=== PATIENT | male | born 1965 | race Caucasian/White ===

== ENCOUNTER → 2017-01-27 | Outpatient (CLI) | payer OTHER ==
[~2017-01-27] MED LIST: "\\\"BP PILL\\\""; ASPIRIN ADULT L81 M1 PO; EFFEXOR-XR75 MG PO; HYDR25T PO; LISINOPRIL10 M1 PO; MEDROL DOSEPAK4 MG PO; METOPROLOL TART50 M1 PO; SIMVASTATIN20 MG PO
[2017-01-27 11:46] LABS: BASO # 0.1 10*3/uL (0.0-0.1); BASO % 0.5 % (0.0-1.0); EOS # 0.1 10*3/uL (0.0-0.4); EOS % 0.9 % (1.0-4.0); HEMATOCRIT 42.4 % (42.0-52.0); HEMOGLOBIN 14.5 g/dl (14.0-18.0); LYMPH # 2.3 10*3/uL (1.3-4.4); LYMPH % 22.6 % (27.0-41.0); MEAN CELL VOLUME 99.8 fl (80.0-94.0); MEAN CORPUSCULAR HGB 34.1 pg (27.0-31.0); MEAN CORPUSCULAR HGB CONC 34.2 g/dl (33.0-37.0); MEAN PLATELET VOLUME 9.9 fl (9.6-12.3); MONO # 0.6 10*3/uL (0.1-1.0); NEUT % 68.6 % (47.0-73.0); PLATELET COUNT AUTOMATED 232 10*3/uL (130-400); RED BLOOD COUNT 4.25 10*6/uL (4.50-5.90); WHITE BLOOD COUNT 10.2 10*3/uL (4.8-10.8)
[2017-01-27 12:10] LABS: INTERNATIONAL NORM RATIO 0.9 (2.0-3.5)
[2017-01-27 12:11] LABS: ALKALINE PHOSPHATASE 79 U/L (45-117); BILIRUBIN, DIRECT 0.2 mg/dL (0.0-0.2); BUN 20 mg/dl (7-24); CHLORIDE 105 mmol/L (98-107); CREATININE 1.09 mg/dL (0.70-1.30); POTASSIUM 4.7 mmol/L (3.5-5.1); SGOT/AST 27 IU/L (3-35); SGPT/ALT 39 U/L (12-78); SODIUM 138 mmol/L (136-145); TOTAL PROTEIN 7.7 gm/dL (6.4-8.2)
[2017-01-27 12:58] LABS: BILIRUBIN NEGATIVE (NEGATIVE); BLOOD NEGATIVE (NEGATIVE); CLARITY CLEAR (CLEAR); COLOR YELLOW (YELLOW); GLUCOSE NEGATIVE (NEGATIVE); KETONE NEGATIVE (NEGATIVE); LEUKO ESTERASE NEGATIVE (NEGATIVE); NITRITE NEGATIVE (NEGATIVE); PH 5.5 (5.0-9.0); SPECIFIC GRAVITY <= 1.005 (1.005-1.030); UROBILINOGEN 0.2 E.U./dl (0.2-1.0)
[2017-01-27 13:37] LABS: RBC 0-2 rbc/hpf (0-2)
== END | disposition home or self-care (01) ==
LOC: LAB 10:09
PROVIDERS: Surgery
DX: Z01.818 Encounter for other preprocedural examination (principal); K40.20 Bilateral inguinal hernia, without obstruction or gangrene, not specified as recurrent; R06.02 Shortness of breath; R05 Cough

== ENCOUNTER → 2017-02-02 | Day surgery (SDC) | payer OTHER ==
[2017-01-27 10:41] VITALS: BP 120/78
[2017-02-02] VITALS (8 sets, daily range): BP systolic 117–152; BP diastolic 50–72
[~2017-02-02] VITALS: Ht 175.2 cm; Wt 74.8 kg
[~2017-02-02] MED LIST changes: +NORCO 5-325 TA1 EACH PO
--- NOTE | ~2017-02-02 | O ---
[place], [place] OPERATIVE NOTE NAME: MARIJA PUENTE III [facility] #: [id number] UNIT #: [id number] ROOM: DOCTOR: JIMMY POWELL MD BIRTHDATE: [birth year] DOS: 02/02/2017 PREOPERATIVE DIAGNOSIS: Bilateral inguinal hernia. POSTOPERATIVE DIAGNOSIS: Bilateral inguinal hernia. PROCEDURE: Repair of bilateral inguinal hernia with mesh. SURGEON: Jimmy Powell MD BROOM MACHINE OPERATOR: CAS. ANESTHESIA: General. INDICATIONS: This is a 51-year-old gentleman with a history of bilateral inguinal hernia, who is here for the above-mentioned procedure. The procedure and its complications explained to the patient in detail preoperatively. Complications that were discussed included, but were not limited to bleeding, infection, hematoma/seroma/abscess formation, formation and recurrence, prolonged postoperative pain and damage to underlying vital structures, agreed to proceed. DESCRIPTION OF PROCEDURE: After identifying patient, patient was brought to the operating suite and laid in the supine position. After induction of general anesthesia, the parts were painted and draped in the usual sterile fashion and a time-out procedure was called. It was decided to proceed with the left inguinal hernia repair first. Incision was marked and an incision was made over the marked site. The skin and the subcutaneous tissue were incised in the line of the incision. The external oblique aponeurosis was incised in the line of its fibers. The cord structures were encircled with the help of a Celi drain and retracted away. There was found to be a direct inguinal hernia. There was no indirect sac that could be identified. In order to better repair of this defect, the upturned part of the inguinal ligament and the conjoined tendon approximated with the help of #1 Prolene in an interrupted fashion. Thereafter, light Prolene mesh was brought and sutured to the upturned part of the inguinal ligament and the conjoined tendon with the help of 3-0 Prolene in an interrupted fashion. Thereafter, the external oblique aponeurosis was approximated with the help of 0 Vicryl in a running fashion. The skin edges were approximated after the subcutaneous tissue was irrigated and approximated with the help of 3-0 Vicryl in a running fashion. Skin edges were approximated with the help of 4-0 Vicryl in a subcuticular running fashion after edges were infiltrated with 1% plain lidocaine. A dressing was placed. The attention was then turned towards the right side. Exactly, the same procedure was performed on the right side. There was no indirect hernia that could be visualized. The hernial defect was a direct hernia. After that was completed, the patient was extubated and brought back to the recovery room in stable fashion. There were no complications. [place], [place] OPERATIVE NOTE NAME: MARIJA PUENTE III UNIT #: [id number] ROOM: DOCTOR: JIMMY POWELL MD BIRTHDATE: [birth year] Jimmy Powell MD CM:OPRECORD:OPERATIVE NOTE [id number] 1405 JIMMY POWELL MD 02/02/17 1404 interface
== END | disposition home or self-care (01) ==
LOC: SDC 01-27 10:15
DX: K40.20 Bilateral inguinal hernia, without obstruction or gangrene, not specified as recurrent (principal); I10 Essential (primary) hypertension; F17.210 Nicotine dependence, cigarettes, uncomplicated; Z98.890 Other specified postprocedural states; Z79.899 Other long term (current) drug therapy

== ENCOUNTER 2018-11-20 13:07 | Inpatient (IN) | payer BC ==
[~2018-11-20] VITALS: Ht 175.3 cm; Wt 79.4 kg
--- NOTE | ~2018-11-20 | EKG ---
[place], [place] ELECTROCARDIOGRAM REPORT NAME: MARIJA PUENTE III UNIT #: [id number] ROOM: [facility] DOCTOR: ELÍAS DRAFT REPORT BIRTHDATE: [birth year] [facility] Test Date: 2018-11-20 Test Time: 13:58:12 Pat Name: MARIJA PUENTE Department: Room: [place] [address] Gender: M Scrum Project Manager: Fabby Oliva : 1965 Requested By: ROSALBA ANDRADE Order Number: [id number] Reading MD: Jim Logan MD Measurements Intervals [place] Rate: 112 P: -54 AK: 133 QRS: 46 QRSD: 99 T: 118 QT: 355 QTc: 485 Interpretive Statements Sinus or ectopic atrial tachycardia LVH with secondary repolarization abnormality Anteroseptal infarct, possibly acute Electronically Signed On 11-22-2018 12:27:07 PDT by Jim Logan MD CM:EKGRPT:ELECTROCARDIOGRAM REPORT [id number] 1227 ROSALBA ANDRADE MD EPIPHANY DRAFT REPORT ROSALBA ANDRADE MD
--- NOTE | ~2018-11-20 | EKG ---
[place], [place] ELECTROCARDIOGRAM REPORT NAME: MARIJA PUENTE III UNIT #: [id number] ROOM: [facility] DOCTOR: ELÍAS DRAFT REPORT BIRTHDATE: [birth year] [facility] Test Date: 2018-11-20 Test Time: 18:00:37 Pat Name: MARIJA PUENTE Department: Room: [place] [address] Gender: M Sampling Theory Teacher: : 1965 Requested By: ROSALBA ANDRADE Order Number: [id number] Reading MD: Jim Logan MD Measurements Intervals [place] Rate: 97 P: 80 OK: 132 QRS: 55 QRSD: 104 T: 136 QT: 376 QTc: 478 Interpretive Statements Sinus rhythm LAE, consider biatrial enlargement LVH with secondary repolarization abnormality Anterior infarct, old Baseline wander in lead(s) V1 Electronically Signed On 11-22-2018 12:27:24 PDT by Jim Logan MD CM:EKGRPT:ELECTROCARDIOGRAM REPORT 1800 1227 ROSALBA MCKINLEY DRAFT REPORT ROSALBA ANDRADE MD
--- NOTE | ~2018-11-20 | EKG ---
[place], [place] ELECTROCARDIOGRAM REPORT NAME: MARIJA PUENTE III UNIT #: [id number] ROOM: [facility] DOCTOR: ELÍAS DRAFT REPORT BIRTHDATE: [birth year] [facility] Test Date: 2018-11-20 Test Time: 20:49:15 Pat Name: MARIJA PUENTE Department: Room: [place] [address] Gender: M Coldfusion: : 1965 Requested By: ROSALBA ANDRADE Order Number: [id number] Reading MD: Jim Logan MD Measurements Intervals [place] Rate: 96 P: -23 MT: 122 QRS: 59 QRSD: 100 T: 153 QT: 429 QTc: 543 Interpretive Statements Sinus rhythm LVH with secondary repolarization abnormality Anterior infarct, old ST depr, consider ischemia, inferior leads Prolonged QT intervaljavascript:perform('study_[email or web address]') Baseline wander in lead(s) II,aVF,V4,V5,V6 Electronically Signed On 11-22-2018 12:27:32 PDT by Jim Logan MD CM:EKGRPT:ELECTROCARDIOGRAM REPORT 48 1227 ROSALBA MCKINLEY DRAFT REPORT ROSALBA ANDRADE MD
--- NOTE | ~2018-11-20 | WRIGHTHP ---
[place], [place] PATIENT HISTORY AND PHYSICAL EXAM NAME: MARIJA PUENTE III [facility] #: [id number] UNIT #: [id number] ROOM: [facility] DOCTOR: ROSALBA ANDRADE MD BIRTHDATE: [birth year] DOS: 11/20/2018 HISTORY OF PRESENT ILLNESS: The patient is a 53-year-old gentleman with a past medical history of: 1. Benign essential hypertension. 2. Mixed hyperlipidemia. 3. History of alcohol dependence and chronic shortness of breath. 4. History of nicotine smoke dependence. 5. History of rheumatic heart disease with a cardiac murmur. The patient presented to the Emergency Department and increasing complaints of chest pains, headaches going on for about 2 years now, but worse now. The patient was found to have a fever of 103 degrees Fahrenheit and minimal elevation of troponin-I level at 0.4 and abnormal EKG. The patient was sent over by Dr. Richardson, his PCP for admission to ICU. The patient was seen by Cardiology and suspected to have pericarditis. He also had EKG abnormality. An echocardiogram has been ordered and he has been admitted to ICU with Dr. Logan, the imaging center manager is following him. After admission to the ICU, the patient is still complaining of significant pain in the shoulders, chest, neck and head. The patient was found to be tachycardic at the heart rate of 130 beats per minute. The patient says he drinks alcohol on a regular basis. No dizziness or fainting episodes. REVIEW OF SYSTEMS: RESPIRATORY: Increased shortness of breath. GASTROINTESTINAL: No nausea, vomiting, diarrhea, constipation. CARDIOVASCULAR SYSTEM: Constant chest pains. HOME MEDICATIONS: The patient takes metoprolol, Lipitor at home. ALLERGIES: No known drug allergies. FAMILY HISTORY: Noncontributory. PHYSICAL EXAMINATION: GENERAL: Alert, oriented x 3, in no visible distress. Appears somewhat uncomfortable. VITAL SIGNS: Blood pressure 117/64, heart rate 98 beats per minute, came down from 120 beats per minute, fever ranging between 101-103 degrees Fahrenheit, breathing 16-20 times per minute. HEENT AND NECK: Extraocular movements are intact. Sclerae are anicteric. Oral mucosa is moist and clean. No obvious facial weakness. Neck is supple without any lymphadenopathy. No thyromegaly. No JVD. No carotid arterial bruits. LUNGS: Clear to auscultation. No wheezing. No rhonchi. CARDIOVASCULAR SYSTEM: The patient has a systolic ejection murmur spread all over the precordium on heart auscultation. ABDOMEN: Soft, nontender. No obvious organomegaly. Bowel sounds are present. No obvious herniation. [place], [place] PATIENT HISTORY AND PHYSICAL EXAM NAME: MARIJA PUENTE III UNIT #: [id number] ROOM: [facility] DOCTOR: ROSALBA ANDRADE MD BIRTHDATE: [birth year] EXTREMITIES: Without significant cyanosis or edema. Warm to touch. CENTRAL NERVOUS SYSTEM: Alert and oriented x 3. Cranial nerves II-XII are intact. Speech is normal. The patient is able to move all extremities. Normal muscle strength. Deep tendon reflexes are equal on both sides. Plantars were downgoing. LABORATORY DATA: Troponin levels elevated to 0.7 now. Urinalysis showing some 20-30 rbc's. Urine drug screen was normal. Sed rate of 60. Chest x-ray without acute abnormality. White cell count elevated at 13,000. IMPRESSION: 1. Constant chest pains with slight elevation of troponin levels, suggestive for pericarditis and abnormal EKG. The patient may also present acute myocardial infarction, being monitored very closely in the ICU and started on anticoagulation with heparin by Dr. Logan, the imaging center manager. I am starting him on small dose of prednisone and giving him Toradol for pain relief. 2. History of alcoholism and alcohol dependence. I will look for withdrawal. The patient drinks on a daily basis and look for alcohol withdrawal and delirium tremens, keep him on small dose of lorazepam and also give him p.r.n. doses as necessary. 3. High-grade fever. The patient was started on Zosyn and Infectious Disease specialists consulted. No signs of pneumonia but the patient may have pericarditis. 4. Mixed hyperlipidemia, being treated with atorvastatin. 5. Benign essential hypertension. Blood pressure is being monitored and treated. Blood pressure is staying normal. 6. Nicotine smoke dependence. The patient started on nicotine patch, encouraged to stop smoking cigarettes. ROSALBA ANDRADE MD CM:HISPHYS:PATIENT HISTORY AND PHYSICAL EXAMINATION 34 57 ROSALBA ANDRADE MD 11/20/181957 interface
--- NOTE | ~2018-11-20 | DS ---
[place], [place] DISCHARGE SUMMARY NAME: MARIJA PUENTE III MERGED WITH [facility] #: [id number] UNIT #: [id number] ROOM: [facility] DOCTOR: ROSALBA ANDRADE MD BIRTHDATE: [birth year] DOS: 11/22/2018 DISCHARGE DIAGNOSES: 1. Fever of unknown origin. 2. Elevated troponin I levels. The patient is going for heart catheterization to [facility]. 3. History of alcohol dependence. 4. Mixed hyperlipidemia. 5. Benign essential hypertension. 6. Nicotine smoke dependence. 7. History of rheumatic heart disease with cardiac murmur. HOSPITAL COURSE: The patient presented to the Emergency Department at [facility] with cough and chest pains, which had been going on for 2 years. Also, going into his neck and head, was getting severe. He was found to have fever of 103 degrees Fahrenheit, minimal elevation of troponin levels and an abnormal EKG. The patient was actually sent over from Dr. Jimenez's office. The patient admitted to ICU. Cardiology consult was obtained. An echocardiogram was ordered. The patient continued to have high-grade fevers, chest pains, neck and head pains. The patient was suspected to have pericarditis and his troponin levels became further elevated, although not extremely high, they went to 1.2. Fevers continued. He was treated with IV Zosyn and is being transferred to [facility]. He will probably get a CATALINA and a heart catheterization for further evaluation. 1. History of alcoholism and alcohol dependence. He was kept on Ativan and also p.r.n. IV Ativan and watch for DTs. He has no signs of, alcohol withdrawal at this time. He was closely monitored in the ICU. 2. Mixed hyperlipidemia is being treated with atorvastatin. 3. Benign essential hypertension with blood pressures to be monitored and controlled. 4. Nicotine smoke dependence. The patient encouraged to stop smoking cigarettes and was kept on nicotine patch. DISCHARGE MANAGEMENT: The patient on Solu-Medrol IV 20 mg 3 times a day, metoprolol 50 mg b.i.d., atorvastatin 40 mg a day, aspirin 81 mg a day, Tylenol p.r.n., nicotine patch 21 mg daily, IV Levaquin 750 mg daily, IV Zosyn 3.3 grams every 6 hours, lorazepam 2 mg every 6 hours IV p.r.n. for DTs and 0.5 mg 3 times a day orally. Recommend on regular basis IM Toradol 60 mg b.i.d. to complete 5 days only. The patient is being transferred to [facility] under the care of Dr. Logan. [place], [place] DISCHARGE SUMMARY NAME: KWAME MARY ANNMARIJA Dariel UNIT #: [id number] ROOM: [facility] DOCTOR: ROSALBA ANDRADE MD BIRTHDATE: [birth year] ROSALBA ANDRADE MD CM:RUTH 9 5 ROSALBA ANDRADE MD 11/22/18 0954 interface
--- NOTE | ~2018-11-20 | PR ---
[place], [place] PROGRESS NOTE NAME: MARIJA PUENTE III [facility] #: [id number] UNIT #: [id number] ROOM: [facility] DOCTOR: ROSALBA ANDRADE MD BIRTHDATE: [birth year] DOS: 11/21/2018 SUBJECTIVE: The patient is feeling about 50% better with Toradol injection with his chest, head and neck pains. OBJECTIVE: VITAL SIGNS: Blood pressure 113/63, heart rate of 109 beats per minute, breathing 18 times per minute, temperature of 101 degrees Fahrenheit, going up to 103 degrees Fahrenheit. GENERAL APPEARANCE: The patient is alert and oriented x 3, in no visible distress. HEENT AND NECK: Exam within normal limits. CARDIOVASCULAR SYSTEM: Heart rate is regular in rate and rhythm. S1 and S2 normally audible. Ejection murmur on cardiac auscultation LUNGS: Clear to auscultation. ABDOMEN: Soft, nontender. No obvious organomegaly. Bowel sounds are present. EXTREMITIES: Without significant cyanosis or edema. IMPRESSION: 1. The patient with persistent high-grade fevers. Blood culture results are still pending. The patient is being followed by ID and workup performed for viral infection. No obvious signs of abscess, but he has poor dental hygiene. No other obvious source of infection. Echocardiogram results are still pending. 2. Elevation of cardiac enzymes and EKG changes, for which the patient is being scheduled for heart catheterization by Dr. Logan. 3. History of alcoholism and alcohol dependence. The patient on Ativan to look for alcohol withdrawal and DTs. So far, the patient is not showing any signs of this and he is being closely monitored in the ICU. 4. Mixed hyperlipidemia, treated with atorvastatin. 5. Benign essential hypertension. Blood pressure is being monitored and treated. 6. Nicotine smoke dependence. The patient started on nicotine patch and encouraged to stop smoking cigarettes. ROSALBA ANDRADE MD CM:PNTRANS [id number] ROSALBA ANDRADE MD 11/22/18 0109 interface
[2018-11-20 13:20] VITALS: BP 139/82
--- NOTE | 2018-11-20 13:20 | NUR ---
A 53, admitted to ICCU, under the services of Dr. RAYMOND ARRIAGA,ROSALBA Gibson with a diagnosis of CHEST PAIN R/O KS,TACHYCARDIA. Chief complaint is SICK X 2 MONTHS, FEVER, CHILLS,COUGH CHEST PAIN AND TIGHTNESS, SOB. Patient arrived via wheel chair from [place]. Monitor applied. Initial assessment completed. Vital signs taken and recorded. DR. RAYMOND ARRIAGA,ROSALBA Gibson notified of admission to the unit. Orders received. See assessment for past medical history, medications and allergies. Patient and/or family oriented to unit. [facility] ICCU visitation policy reviewed. Clothing/patient valuable form completed. DIXON
--- NOTE | 2018-11-20 13:45 | NUR ---
ADMISSION ORDERS RECEIVED FROM DR ANDRADE.
--- NOTE | 2018-11-20 14:00 | NUR ---
STAT EKG TAKEN AND EKG FAXED TO DR MCKEON'S OFFICE AFTER I NOTIFIED TRISH AT DR MCKEON'S OFFICE OF CONSULT.
--- NOTE | 2018-11-20 14:29 | NUR ---
DR MCKEON IN TO SEE PT. NEW ORDERS RECEIVED.
[2018-11-20 14:43] LABS: BASO # 0.1 10*3/uL (0.0-0.1); BASO % 0.4 % (0.0-1.0); HEMATOCRIT 44.3 % (42.0-52.0); HEMOGLOBIN 15.4 g/dl (14.0-18.0); LYMPH # 1.1 10*3/uL (1.3-4.4); LYMPH % 8.3 % (27.0-41.0); MEAN CELL VOLUME 96.5 fl (80.0-94.0); MEAN CORPUSCULAR HGB 33.6 pg (27.0-31.0); MEAN CORPUSCULAR HGB CONC 34.8 g/dl (33.0-37.0); MEAN PLATELET VOLUME 10.5 fl (9.6-12.3); MONO # 0.8 10*3/uL (0.1-1.0); MONO % 5.7 % (3.0-9.0); NEUT # 11.3 10*3/uL (2.3-7.9); PLATELET COUNT AUTOMATED 191 10*3/uL (130-400); RED BLOOD COUNT 4.59 10*6/uL (4.50-5.90); RED CELL DISTRI WIDTH 12.4 % (0-14.5); WHITE BLOOD COUNT 13.3 10*3/uL (4.8-10.8)
[2018-11-20 14:59] LABS: ALBUMIN 3.4 gm/dl (3.1-4.5); ALKALINE PHOSPHATASE 86 U/L (45-117); BUN 14 mg/dl (7-24); CHLORIDE 101 mmol/L (98-107); CREATININE 1.12 mg/dL (0.70-1.30); POTASSIUM 3.9 mmol/L (3.5-5.1); SGOT/AST 25 IU/L (3-35); SGPT/ALT 27 U/L (12-78); SODIUM 134 mmol/L (136-145); TOTAL PROTEIN 7.9 gm/dL (6.4-8.2)
[2018-11-20 15:34] LABS: ACT PARTIAL THROMBO TIME 31.4 SECONDS (20.0-32.1); INTERNATIONAL NORM RATIO 0.9 (2.0-3.5)
[2018-11-20 16:00] VITALS: BP 117/64
[2018-11-20 16:03] LABS: BILIRUBIN NEGATIVE (NEGATIVE); BLOOD TRACE-INTACT (NEGATIVE); CLARITY CLEAR (CLEAR); COLOR YELLOW (YELLOW); GLUCOSE NEGATIVE (NEGATIVE); KETONE 1+ (NEGATIVE); LEUKO ESTERASE NEGATIVE (NEGATIVE); NITRITE NEGATIVE (NEGATIVE); SPECIFIC GRAVITY 1.025 (1.005-1.030); URINE AMPHETAMINES < 1000 (1000ng/ml); URINE BARBITURATES < 200 (200ng/ml); URINE BENZODIAZEPINES < 200 (200ng/ml); URINE CANNABINOIDS (THC) < 50 (50ng/ml); URINE COCAINE < 300 (300ng/ml); URINE METHADONE < 300 (300ng/ml); URINE OPIATES < 300 (300ng/ml)
[2018-11-20 16:08] LABS: URINE PHENCYCLIDINE < 25 (25ng/ml)
[2018-11-20 16:44] LABS: BACTERIA TRACE; MUCOUS 1+; RBC 21-30 rbc/hpf (0-2)
--- NOTE | 2018-11-20 19:14 | NUR ---
NOTIFED DR. KISER OFFICE FOR CONSULT. DR. CERVANTES LEAD ETL DEVELOPER.
--- NOTE | 2018-11-20 19:20 | NUR ---
MESSAGE LEFT WITH DR. ROWE OFFICE FOR ELEVATED TROP. AWAITING CALL BACK.
[2018-11-20 20:00] VITALS: BP 108/53
--- NOTE | 2018-11-20 20:00 | NUR ---
PATIENT STATES HE IS HAVING PAIN ALL OVER HIS WHOLE BODY, RATES 10/10. PATIENT ALSO HAS A FEVER. TORADOL WAS GIVEN EARLY. WILL MONITOR AND REASSESS.
--- NOTE | 2018-11-20 21:00 | NUR ---
PATIENT STATED HE HASNT SLEPT IN DAYS, REQUESTED SOMETHING TO HELP HIM. FLO GIVEN. WILL MONITOR AND REASSESS.
--- NOTE | 2018-11-20 23:00 | NUR ---
PATIENT RESTING, NO SIGNS OF DISTRESS. TORADOL AND AMBIEN EFFECTIVE.
--- NOTE | 2018-11-20 23:42 | NUR ---
DR. DESAI BEEPED REGARDING FURTHER ELEVATED TROPONIN. ANSWERED BEEPED. NO NEW ORDERS RECEIVED. WILL SEE PT IN THE AM.
[2018-11-21] VITALS: BP 93/40
[2018-11-21 04:00] VITALS: BP 98/60
[2018-11-21 06:25] LABS: HEMATOCRIT 42.1 % (42.0-52.0); HEMOGLOBIN 14.4 g/dl (14.0-18.0); MEAN CELL VOLUME 96.6 fl (80.0-94.0); MEAN CORPUSCULAR HGB CONC 34.2 g/dl (33.0-37.0); MEAN PLATELET VOLUME 10.7 fl (9.6-12.3); PLATELET COUNT AUTOMATED 181 10*3/uL (130-400); RED BLOOD COUNT 4.36 10*6/uL (4.50-5.90); RED CELL DISTRI WIDTH 12.6 % (0-14.5); WHITE BLOOD COUNT 13.3 10*3/uL (4.8-10.8)
[2018-11-21 07:05] LABS: CHLORIDE 101 mmol/L (98-107); CREATININE 1.27 mg/dL (0.70-1.30); POTASSIUM 4.2 mmol/L (3.5-5.1); SODIUM 134 mmol/L (136-145)
[2018-11-21 07:20] LABS: TOTAL CELLS COUNTED 100 #CELLS
[2018-11-21 07:21] LABS: BURR CELLS FEW; PLATELET SUFFICIENCY NORMAL (NORMAL); VACUOLATION OF NEUTROPHILS SLIGHT
[2018-11-21 07:36] LABS: BUN 25 mg/dl (7-24)
[2018-11-21 08:00] VITALS: BP 131/70
--- NOTE | 2018-11-21 09:00 | NUR ---
Materials And Corrosion Engineer in to talk to patient. Patient states lives at home with his who is a ribbon hand. There are 7-9 steps in the home. Physician: Dr. Richardson [facility]: [facility] Home health services: none Patient's level of ADLs: INDEPENDENT Patient has working utilities: yes DME: none Follow-up physician's appointment after d/c: he prefers to make his own follow up appt after discharge Does patient want to access PORTAL?: no Discharge plan discussed with patient. He lives at home with his . He is independent in his ADLs and ambulation. He works from 4am to 5:30pm daily. Discussed home health care services and he denies any home needs at this time. When medically stable he will be discharged to home. MARILY ESPARZA
[2018-11-21 12:00] VITALS: BP 121/65
--- NOTE | 2018-11-21 14:58 | NUR ---
PATIENT C/O ANXIETY. FINE TREMORS NOTED. PATIENT STATING THAT HE IS FEELING ANXIOUS DUE TO THE DOCTOR TOLD HIM THAT HE NEEDS TO HAVE A LEAST ONE HEART VALVE REPLACED. MEDICATED WITH ATIVAN 0.5MG PO PER PRN ORDER. WILL CONTINUE TO MONITOR.
[2018-11-21 16:00] VITALS: BP 113/63
--- NOTE | 2018-11-21 19:30 | NUR ---
PATIENT AGITATED, RESTLESS. STATED HE WAS HAVING PAIN ALL OVER, STATED HE COULD EAT BECAUSE HE WAS TOO MAD. ATIVAN IV GIVEN. WILL MONTIOR AND REASSESS.
[2018-11-21 20:00] VITALS: BP 109/68
--- NOTE | 2018-11-21 21:22 | NUR ---
PATIENT STATES HE JUST WANTS TO SLEEP. TREMORS NOTED. AMBIEN AND ATIVAN GIVEN, WILL MONITOR AND REASSESS.
--- NOTE | 2018-11-21 23:56 | NUR ---
PATIENT RESTING, NO SIGNS OF DISTRESS. AMBIEN AND ATIVAN EFFECTIVE.
[2018-11-22] VITALS: BP 100/62
--- NOTE | 2018-11-22 03:15 | NUR ---
PATIENT AWAKE, STATES THE AMBIEN DIDNT LAST LONG AND WANTED ANOTHER. PATIENT ANXIOUS, SLIGHT TREMORS. IV ATIVAN GIVEN. WILL MONITOR AND REASSESS.
[2018-11-22 03:58] VITALS: BP 96/45
[2018-11-22 08:00] VITALS: BP 100/64
--- NOTE | 2018-11-22 08:00 | NUR ---
TALKED WITH AND HEALTHCARE PROJECT MANAGER AT [facility]. PATIENT TO BE TRANSFERRED TO HEALTHCARE PROJECT MANAGER TODAY. ARRANGEMENTS PENDING. CALLED AND UPDATED. STATED THAT HE WILL BE IN TO SEE THE PATIENT.
[2018-11-22 08:10] LABS: HEPATITIS B SURFACE AG Negative (Negative); HEPATITIS C VIRUS ANTIBODY <0.1 s/co (0.0-0.9)
--- NOTE | 2018-11-22 09:40 | NUR ---
REPORT GIVEN TO JENNA AT GAMEPLAY ENGINEER AT [facility].
--- NOTE | 2018-11-22 10:20 | NUR ---
PATIENT TRANSFERRED TO [facility]ON SHAMP[facility] ASSISTANT [facility]IA [facility]. ALL PERSONAL BELONGINGS SENT WITH . TRANSFER PACKET GIVEN TO AMBULANCE CREW.
[2018-11-22 15:05] LABS: MYCOPLASMA PNEUMONIAE IGG 200 U/mL (0-99); MYCOPLASMA PNEUMONIAE IGG 351 U/mL (0-99); MYCOPLASMA PNEUMONIAE IGM <770 U/mL (0-769)
[2018-11-23 22:04] LABS: PARAINFLUENZA 1 CF Negative (Neg:<1:8); PARAINFLUENZA 2 CF Negative (Neg:<1:8); PARAINFLUENZA 3 CF 1:32 (Neg:<1:8)
[2018-11-26 16:10] LABS: ADENOVIRUS Negative (Negative); INFLUENZA A Negative (Negative); INFLUENZA B Negative (Negative); METAPNEUMOVIRUS Negative (Negative); PARAINFLUENZA 1 Negative (Negative); PARAINFLUENZA 2 Negative (Negative); PARAINFLUENZA 3 Negative (Negative); RHINOVIRUS Negative (Negative); RSV A Negative (Negative); RSV B Negative (Negative)
== END 2018-11-22 10:20 | disposition short-term general hospital (02) | DRG 303 ==
LOC: ICCU 13:07
PROVIDERS: Internal Medicine; Internal Medicine Cardiovascular Disease; ADMIT Internal Medicine
DX: I25.10 Atherosclerotic heart disease of native coronary artery without angina pectoris (principal); I31.9 Disease of pericardium, unspecified; R50.9 Fever, unspecified; R07.9 Chest pain, unspecified; I10 Essential (primary) hypertension; E78.2 Mixed hyperlipidemia; F17.210 Nicotine dependence, cigarettes, uncomplicated; R01.1 Cardiac murmur, unspecified; N18.9 Chronic kidney disease, unspecified; F12.90 Cannabis use, unspecified, uncomplicated; I12.9 Hypertensive chronic kidney disease with stage 1 through stage 4 chronic kidney disease, or unspecified chronic kidney disease; I08.0 Rheumatic disorders of both mitral and aortic valves; Z79.899 Other long term (current) drug therapy; Z71.6 Tobacco abuse counseling; Z79.82 Long term (current) use of aspirin

== ENCOUNTER → 2021-05-09 | Outpatient (CLI) | payer OTHER ==
[2021-05-09 08:11] LABS: BASO % 0.4 % (0.0-1.0); EOS # 0.2 10*3/uL (0.0-0.4); EOS % 1.8 % (1.0-4.0); HEMATOCRIT 47.6 % (42.0-52.0); LYMPH # 2.4 10*3/uL (1.3-4.4); LYMPH % 21.7 % (27.0-41.0); MEAN CELL VOLUME 93.5 fl (80.0-94.0); MEAN CORPUSCULAR HGB 31.8 pg (27.0-31.0); MEAN PLATELET VOLUME 9.7 fl (9.6-12.3); MONO # 0.7 10*3/uL (0.1-1.0); MONO % 5.8 % (3.0-9.0); NEUT # 7.7 10*3/uL (2.3-7.9); NEUT % 69.4 % (47.0-73.0); PLATELET COUNT AUTOMATED 231 10*3/uL (130-400); RED BLOOD COUNT 5.09 10*6/uL (4.50-5.90); RED CELL DISTRI WIDTH 13.3 % (0-14.5); WHITE BLOOD COUNT 11.2 10*3/uL (4.8-10.8)
[2021-05-09 08:50] LABS: ALBUMIN 3.8 gm/dl (3.1-4.5); ALKALINE PHOSPHATASE 73 U/L (45-117); BUN 17 mg/dl (7-24); CHLORIDE 114 mmol/L (98-107); CHOLESTEROL 215 mg/dL (<200); CREATININE 1.08 mg/dL (0.70-1.30); FREE T4 1.05 ng/dl (0.76-1.46); LDL CHOLESTEROL 143 mg/dL (9-159); POTASSIUM 4.8 mmol/L (3.5-5.1); SGOT/AST 23 IU/L (3-35); SGPT/ALT 34 U/L (12-78); SODIUM 142 mmol/L (136-145); TOTAL PROTEIN 7.1 gm/dL (6.4-8.2); TRIGLYCERIDES 71 mg/dl (<150)
[2021-05-09 08:55] LABS: THYROID STIM HORMONE (HS) 0.644 uIU/ml (0.358-4.75)
[2021-05-09 09:50] LABS: VITAMIN D, 25-HYDROXY 26.5 ng/mL (30-100)
== END | disposition home or self-care (01) ==
LOC: LAB 07:47
PROVIDERS: ATTEND Internal Medicine
DX: I10 Essential (primary) hypertension (principal); E78.5 Hyperlipidemia, unspecified

== ENCOUNTER 2022-11-19 20:28 | Emergency (ER) | payer OTHER ==
[2022-11-19] MEDS ORDERED: NAPROSYN500 MG PO (21:05)
== END 2022-11-19 21:21 | disposition home or self-care (01) ==
LOC: ED 20:28
DX: M25.561 Pain in right knee (principal); I10 Essential (primary) hypertension; Z98.890 Other specified postprocedural states